=== PATIENT | male | born 1955 | race Caucasian/White ===

== ENCOUNTER 2018-02-20 09:49 | Emergency (ER) | payer MEDICARE, OTHER, SELFPAY ==
[2018-02-20 09:56] VITALS: BP 161/94; PULSE 95; RESP 16; TEMP 36.8; O2SAT 98; BMI 24.3
--- NOTE | 2018-02-20 10:21 | ED.NECK ---
HPI - Neck Pain/Injury General Chief Complaint: Neck Pain/Injury Stated Complaint: HIT HEAD, NECK PAIN Time Seen by Provider: 02/20/18 09:56 Source: patient Mode of arrival: ambulatory Limitations: no limitations History of Present Illness HPI Narrative: 62-year-old male with a history of cervical spinal fusion presents with 3 months of increasing neck pain after he hit his head while moving in [place]. He came in today because the pain has been increasing and he is concerned about potential fracture or displacement of his hardware. He notes occasional radicular symptoms down both arms when he turns his head and looks to the side. Before his neck surgery he could not look up due to pain. Sensing his head his symptoms have returned. He is taking ibuprofen 800 mg for pain. He is not interested in narcotic pain medications as he was on them for 7 years due to 7 total surgeries. Pain is worse when he looks up. Related Data Home Medications Medication Instructions Recorded Confirmed ibuprofen 800 mg PO DAILY 02/20/18 02/20/18 milk thistle 1 tab PO DAILY 02/20/18 02/20/18 Review of Systems Review of Systems All systems reviewed & are unremarkable except as noted in HPI and below Constitutional Denies chills, Denies fever(s), Denies lethargy and Denies weakness Eyes Denies change in vision, Denies eye discharge, Denies irritation and Denies loss of vision ENT Ears, Nose, Mouth, and Throat: Denies change in voice, Reports neck pain and Denies sore throat Cardiovascular Denies chest pain, Denies irregular heart rhythm, Denies lightheadedness, Denies palpitations, Denies dyspnea, Denies dyspnea on exertion and Denies orthopnea Respiratory Denies cough, Denies dyspnea, Denies dyspnea on exertion and Denies wheezing Gastrointestinal Gastrointestinal: Denies abdominal pain, Denies change in bowel habits, Denies diarrhea, Denies nausea and Denies vomiting Genitourinary Denies hematuria, Denies flank pain, Denies urinary incontinence and Denies urinary urgency Musculoskeletal Reports as per HPI, Reports neck pain and Reports tingling Integumentary/Breasts Denies pruritus, Denies erythema, Denies rash and Denies wounds Neurologic Denies confusion, Denies loss of vision, Reports tingling and Denies weakness Psychiatric Denies anxiety, Denies confusion, Denies depression, Denies homicidal ideation and Denies suicidal ideation Endocrine Denies palpitations Hematologic/Lymphatic Denies easy bruising Allergic/Immunologic Denies wheezing Exam Initial Vital Signs Initial Vital Signs: Vital Signs Temperature 98.3 F 02/20/18 09:56 Pulse Rate 95 H 02/20/18 09:56 Respiratory Rate 16 02/20/18 09:56 Blood Pressure 161/94 H 02/20/18 09:56 Pulse Oximetry 98 02/20/18 09:56 Const General: cooperative and well developed Nutritional Appearance: well nourished Orientation: alert, awake, oriented x3 and not confused HENIA Head: normocephalic and atraumatic Ears: external ears normal and TM's normal bilaterally Nose: external nose normal and No nasal discharge Face and sinus: sinuses nontender, face symmetric, no sinus tenderness and No dry mucous membranes Mouth: oral mucosae normal and moist mucous membranes Teeth and gingiva: dentition normal Throat: tonsils normal and uvula midline Eyes General: appearance normal, both eyes and all related structures Eyelids: eyelids normal Conjunctivae: conjunctivae normal Sclera: sclerae normal Pupils: PERRL EOM: EOM intact bilaterally Neck Neck: trachea midline, No lymphadenopathy, No midline deformity and No JVD Lymphatic: No lymphedema Other: Forward head posture. Tenderness over C5 and C6 midline. No paracervical tenderness. Positive Spurling's test bilaterally with pain radiating to shoulder and upper arm. Chest Chest: normal inspection of the chest Resp Effort & Inspection: normal respiratory effort, able to speak in complete sentences, no respiratory distress and no use of accessory muscles Auscultation: clear to auscultation bilaterally, no rales, no rhonchi and no wheezes Cardio Rate: regular rate Rhythm: regular rhythm Heart Sounds: no click, no gallops, no murmurs and no rubs Pulses: normal peripheral pulses GI Inspection: non-distended Palpation: soft, no hepatosplenomegaly, No guarding, No pulsatile mass and No tender Auscultation: normal bowel sounds Back/Spine/Pelvis Back: No CVA tenderness Cervical Spine: cervical ROM normal and No pain with cervical ROM Thoracic/Lumbar Spine: thoracic and lumbar spine normal to inspection Skin General: no rashes or lesions noted, No jaundice and No petechiae Neuro General: alert, oriented x3, gait normal and no focal motor deficits Speech: speech normal Extrem General: full ROM, no clubbing, cyanosis or edema, no pedal edema and no calf tenderness Psych Appearance: well kempt Mental Status: mental status grossly normal Attitude: cooperative Thought Content: normal and suicidality Judgment: judgment good Course Orders Ordered: ED Orders 02/20/18 10:48 CT cervical spine wo con Stat 02/20/18 12:00 Urine Microscopic Stat 02/20/18 12:06 MR cervical spine wo/w con Stat Vital Signs - 8 hr 02/20/18 09:56 02/20/18 12:00 02/20/18 13:45 Temperature 98.3 F Pulse Rate 95 H 72 80 Respiratory Rate 16 16 14 Blood Pressure 161/94 H Blood Pressure [Right Arm] 161/84 H 149/81 H Pulse Oximetry 98 99 100 02/20/18 14:27 Temperature Pulse Rate 75 Respiratory Rate 16 Blood Pressure Blood Pressure [Right Arm] 162/83 H Pulse Oximetry 99 MDM - Neck Pain/Injury Differential Diagnosis Likely disc disorder of cervical region, closed subluxation of cervical spine, fracture of cervical spine without lesion of spinal cord, cervical radiculopathy and strain of neck muscle Lab Data Lab Results 02/20/18 Range/Units 12:00 Urine RBC None seen (0-5/HPF) Urine WBC None seen (0-5/HPF) Urine Bacteria None seen (None) Ur Culture Indicated? Cult not indicated Micro UA Comment Microscopic normal Imaging Data ct cervical: Radiologist's impression: PROCEDURE: CT CERVICAL SPINE WO CON INDICATIONS: neck pain, trauma TECHNIQUE: Noncontrast 3 mm thick sections acquired from the skull base to the T4 level. Sagittal and coronal reformats were then constructed. For radiation dose reduction, the following was used: automated exposure control, adjustment of mA and/or kV according to patient size. COMPARISON: None. FINDINGS: Image quality: Diagnostic. Bones: The craniocervical and atlantoaxial joints are well-maintained. The odontoid is intact. However, there are cystic changes identified at the base of the odontoid, which are positioned to the left of midline. The vertebral body heights and prevertebral soft tissues are within normal limits throughout the cervical spine without evidence to suggest acute compression fracture. No other fractures are evident within the cervical spine. The bone mineralization is within normal limits. There is a lucent lesion identified involving the left C3 pedicle and facet (image 22, series 5). Postoperative changes are present related to an anterior cervical discectomy and fusion extending from C4-C7. Interbody spacers are present at each level. There is an anterior plate orthopedic plate secured in place by 2 screws at each level. The hardware appears to be intact. Moderate multilevel degenerative changes of the cervical spine are identified demonstrating multilevel posterior disc osteophyte complexes and facet arthrosis. Straightening of the normal cervical lordosis is present. There is no spondylolisthesis. Soft tissues: No prevertebral soft tissue swelling. The imaged lung apices are clear. Imaged portions of the mediastinum are unremarkable. Otherwise, the remainder of the imaged soft tissues of the neck are within normal limits. IMPRESSION: 1. No acute fracture of the cervical spine. 2. Postoperative changes related to extensive anterior lower cervical discectomy and fusion. The hardware appears to be intact. 3. Lucency involving the left C3 pedicle and facet may be related to a hemangioma. However, a bony neoplasm is difficult to exclude. Contrast enhanced MRI of the cervical spine is recommended for further evaluation. 4. Moderate degenerative changes of the cervical spine. Dictated by: Bertram Gimenez M.D. on 02/20/2018 at 10:12 Approved by: Bertram Gimenez M.D. on 02/20/2018 at 10:22 mri - cervical: Radiologist's impression: PROCEDURE: MR CERVICAL SPINE WO/W CON INDICATIONS: 62-year-old man with neck pain, abnormal CT TECHNIQUE: Noncontrast sagittal T1 spin echo and T2 fast spin echo, sagittal STIR, foraminal oblique sagittal T2 fast spin echo, axial gradient echo or T2 fast spin echo through the cervical spine. After the administration of contrast, axial and sagittal T1 spin echo with fat saturation through the cervical spine. COMPARISON: [facility], CT, CT CERVICAL SPINE WO CON, 02/20/2018, 10:44. FINDINGS: Image quality: Excellent. Alignment and curvature: There is normal bony alignment. Marrow: There are post surgical changes with spinal fusion at C4-C7, without suspicious enhancement. Hypointense T1 and mildly hyperintense T2 signal is noted in the left C3 pedicle and facet, and to a lesser degree the left C4 facet. There is severe C3 and C4 facet arthropathy on the left. On contrast enhanced images, there is lateral increased enhancement. The findings are suggestive of a benign process such as reactive changes related to arthritis. A differential diagnoses is an intraosseous hemangioma, which is given periarticular location and associated degenerative joint process. Spinal cord: Visualized spinal cord has normal size and signal. No cerebellar tonsillar herniation. No abnormal intramedullary enhancement. Paraspinous soft tissues: No paravertebral masses or suspicious enhancement. C2-3: Preserved disc height. Mild disc desiccation. There is broad posterior disc bulge and disc protrusion. Mild bilateral facet arthropathy. The central canal is mildly narrowed. No foraminal stenosis. C3-4: Preserved disc height. Mild disc desiccation. There is broad posterior disc bulge and disc protrusion. Severe left and moderate right facet arthropathy. The central canal is severely narrowed. Severe left and moderate right foraminal stenosis. C4-5: Surgically fused. No central canal stenosis. Mild bilateral foraminal stenosis. C5-6: Surgically fused. No central canal stenosis. Mild bilateral foraminal stenosis. C6-7: Surgically fused. No central canal stenosis. Mild bilateral foraminal stenosis. C7-T1: Normal appearance. IMPRESSION: 1. Hypointense T1 and mildly hyperintense T2 signal is noted in the left C3 pedicle and facet currently with CT finding of lucency in the same area. A similar but lesser degree of blunting is noted in the left C4 facet. There is severe left C3-C4 facet joint degeneration. There MRI findings are suggestive of reactive marrow edema secondary to severe left C3-C4 arthritis. Less likely diagnostic possibilities include intraosseous hemangioma, and metastatic disease. If the patient has personal history of cancer, a whole body bone scan would be helpful. 2. Multilevel degenerative and postsurgical changes in cervical spine. 3. Severe central canal stenosis at C3-C4, and mild central canal stenosis at C2-C3. 4. Severe left and moderate right foraminal stenosis at C3-C4. Dictated by: Tye Salinas M.D. on 02/20/2018 at 13:13 Approved by: Tye Salinas M.D. on 02/20/2018 at 13:56 MDM Narrative Medical decision making narrative: 62-year-old male with a history of degenerative disc disease of the cervical spine status post multiple spinal surgeries presents with neck pain that has been worsening over the past 3 months since hitting his head in [place] with radicular symptoms down both arms. He prefers not to take narcotics but rather wants to have imaging done to understand what is happening. He does not have a local primary care provider. CT suggested possible metastasis and recommended MRI. MRI shows severe degenerative disc disease and less likely metastasis. Patient has no known history of cancer at this time. Advised that he should see Dr. Benites given the severity of abnormalities seen on MRI. He is not having any red flags that need emergent attention today. Patient does not want pain medications. He understands and agrees with the plan for follow-up. Discharge Plan Departure Patient Disposition: Home, Self-Care Clinical Impression: Cervical radiculopathy, Acute neck pain, Degenerative joint disease of cervical spine Instructions: DI for Cervical Radiculopathy Activity Restrictions/Additional Instructions: Thank you for trusting us with your care today. I am sorry about your ongoing neck pain. Please discuss your situation with Dr. Benites in follow up. There does not appear to be anything that needs emergency treatment at this time. Return to the ER for new or worsening symptoms. Prescriptions: No Action ibuprofen 800 mg Tablet 800 mg PO DAILY RF: 0 milk thistle 1 tab PO DAILY RF: 0 Referrals: Colby Benites MD [Physician] -
--- NOTE | 2018-02-20 10:48 | DI.CT.S_ITS ---
PROCEDURE: CT CERVICAL SPINE WO CON INDICATIONS: neck pain, trauma TECHNIQUE: Noncontrast 3 mm thick sections acquired from the skull base to the T4 level. Sagittal and coronal reformats were then constructed. For radiation dose reduction, the following was used: automated exposure control, adjustment of mA and/or kV according to patient size. COMPARISON: None. FINDINGS: Image quality: Diagnostic. Bones: The craniocervical and atlantoaxial joints are well-maintained. The odontoid is intact. However, there are cystic changes identified at the base of the odontoid, which are positioned to the left of midline. The vertebral body heights and prevertebral soft tissues are within normal limits throughout the cervical spine without evidence to suggest acute compression fracture. No other fractures are evident within the cervical spine. The bone mineralization is within normal limits. There is a lucent lesion identified involving the left C3 pedicle and facet (image 22, series 5). Postoperative changes are present related to an anterior cervical discectomy and fusion extending from C4-C7. Interbody spacers are present at each level. There is an anterior plate orthopedic plate secured in place by 2 screws at each level. The hardware appears to be intact. Moderate multilevel degenerative changes of the cervical spine are identified demonstrating multilevel posterior disc osteophyte complexes and facet arthrosis. Straightening of the normal cervical lordosis is present. There is no spondylolisthesis. Soft tissues: No prevertebral soft tissue swelling. The imaged lung apices are clear. Imaged portions of the mediastinum are unremarkable. Otherwise, the remainder of the imaged soft tissues of the neck are within normal limits. IMPRESSION: 1. No acute fracture of the cervical spine. 2. Postoperative changes related to extensive anterior lower cervical discectomy and fusion. The hardware appears to be intact. 3. Lucency involving the left C3 pedicle and facet may be related to a hemangioma. However, a bony neoplasm is difficult to exclude. Contrast enhanced MRI of the cervical spine is recommended for further evaluation. 4. Moderate degenerative changes of the cervical spine. Dictated by: Bertram Gimenez M.D. on 02/20/2018 at 10:12 Approved by: Bertram Gimenez M.D. on 02/20/2018 at 10:22
[2018-02-20 12:00] VITALS: BP 161/84; PULSE 72; RESP 16; O2SAT 99
--- NOTE | 2018-02-20 12:06 | DI.MRI.S_ITS ---
PROCEDURE: MR CERVICAL SPINE WO/W CON INDICATIONS: 62-year-old man with neck pain, abnormal CT TECHNIQUE: Noncontrast sagittal T1 spin echo and T2 fast spin echo, sagittal STIR, foraminal oblique sagittal T2 fast spin echo, axial gradient echo or T2 fast spin echo through the cervical spine. After the administration of contrast, axial and sagittal T1 spin echo with fat saturation through the cervical spine. COMPARISON: [facility], CT, CT CERVICAL SPINE WO CON, 02/20/2018, 10:44. FINDINGS: Image quality: Excellent. Alignment and curvature: There is normal bony alignment. Marrow: There are post surgical changes with spinal fusion at C4-C7, without suspicious enhancement. Hypointense T1 and mildly hyperintense T2 signal is noted in the left C3 pedicle and facet, and to a lesser degree the left C4 facet. There is severe C3 and C4 facet arthropathy on the left. On contrast enhanced images, there is lateral increased enhancement. The findings are suggestive of a benign process such as reactive changes related to arthritis. A differential diagnoses is an intraosseous hemangioma, which is given periarticular location and associated degenerative joint process. Spinal cord: Visualized spinal cord has normal size and signal. No cerebellar tonsillar herniation. No abnormal intramedullary enhancement. Paraspinous soft tissues: No paravertebral masses or suspicious enhancement. C2-3: Preserved disc height. Mild disc desiccation. There is broad posterior disc bulge and disc protrusion. Mild bilateral facet arthropathy. The central canal is mildly narrowed. No foraminal stenosis. C3-4: Preserved disc height. Mild disc desiccation. There is broad posterior disc bulge and disc protrusion. Severe left and moderate right facet arthropathy. The central canal is severely narrowed. Severe left and moderate right foraminal stenosis. C4-5: Surgically fused. No central canal stenosis. Mild bilateral foraminal stenosis. C5-6: Surgically fused. No central canal stenosis. Mild bilateral foraminal stenosis. C6-7: Surgically fused. No central canal stenosis. Mild bilateral foraminal stenosis. C7-T1: Normal appearance. IMPRESSION: 1. Hypointense T1 and mildly hyperintense T2 signal is noted in the left C3 pedicle and facet currently with CT finding of lucency in the same area. A similar but lesser degree of blunting is noted in the left C4 facet. There is severe left C3-C4 facet joint degeneration. There MRI findings are suggestive of reactive marrow edema secondary to severe left C3-C4 arthritis. Less likely diagnostic possibilities include intraosseous hemangioma, and metastatic disease. If the patient has personal history of cancer, a whole body bone scan would be helpful. 2. Multilevel degenerative and postsurgical changes in cervical spine. 3. Severe central canal stenosis at C3-C4, and mild central canal stenosis at C2-C3. 4. Severe left and moderate right foraminal stenosis at C3-C4. Dictated by: Tye Salinas M.D. on 02/20/2018 at 13:13 Approved by: Tye Salinas M.D. on 02/20/2018 at 13:56
[2018-02-20 13:14] LABS: Bacteria Urine None Seen; RBC Urine None Seen (0-5/HPF); WBC Urine None Seen (0-5/HPF)
[2018-02-20 13:23] LABS: Culture Indicated Urine Cult Not Indicated; Urine Comments Microscopic Normal
[2018-02-20 13:45] VITALS: BP 149/81; PULSE 80; RESP 14; O2SAT 100
[2018-02-20 14:27] VITALS: BP 162/83; PULSE 75; RESP 16; O2SAT 99
== END 2018-02-20 14:43 | disposition home or self-care (01) ==
PROVIDERS: Emergency Provider Emergency Medicine
DX: M54.12 Radiculopathy, cervical region (principal); M54.2 Cervicalgia; M47.812 Spondylosis without myelopathy or radiculopathy, cervical region
CPT/HCPCS: 72125; 72156; 81003; 81015; 99283; 99284; A9579

== ENCOUNTER → 2018-03-24 13:20 | Outpatient (CLI) | payer MEDICARE, OTHER, SELFPAY | PROVIDERS: Visit Provider Orthopaedic Surgery | DX: M48.02 Spinal stenosis, cervical region (principal); Z01.818 Encounter for other preprocedural examination | CPT/HCPCS: 93005 ==

== ENCOUNTER 2018-04-08 12:50 | Day surgery (SDC) | payer MEDICARE, OTHER, SELFPAY ==
[2018-03-25 12:55] VITALS: BMI 24.7
[2018-04-08] VITALS (12 sets, daily range): BP systolic 121–179; BP diastolic 72–126; PULSE 62–783; RESP 10–18; TEMP 35.9–37.1; O2SAT 96–100; BMI 24.7; BMI 23.6
--- NOTE | 2018-04-08 | DI.RAD.S_ITS ---
PROCEDURE: XR CERVICAL SPINE 2V OR 3V INDICATIONS: C3-4 ACDF TECHNIQUE: 2 view(s) of the cervical spine were acquired. COMPARISON: None. IMPRESSION: Two images of the cervical spine obtained with a mobile image intensifier demonstrating anterior plate and screw fusion of C4-7. Dictated by: Louis Whitley M.D. on 04/08/2018 at 17:26 Approved by: Louis Whitley M.D. on 04/08/2018 at 17:27
[2018-04-08] MEDS: LACTATED RINGERS 1,000 ML 42 ML IV (13:39)
--- NOTE | 2018-04-08 14:05 | PM.PREOP ---
Pre-operative Note Interval Note Pre-op Check: Yes History & Physical Reviewed by Physician and Yes Exam Performed Changes: No
--- NOTE | 2018-04-08 14:42 | PM.OP.1 ---
Operative Date/Time/Diagnoses Date of procedure: 04/08/18 Time of procedure: 16:18 Pre-op diagnosis: Cervical stenosis with myelopathy Post-op diagnosis: same Procedure & Clinicians Procedure: C3-4 anterior cervical diskectomy and fusion Placement of cage Iliac crest bone graft Use of microscope Same procedure as scheduled: Yes Indications: [age] year old male with intractable pain from stenosis. They had failed conservative management and requested operative intervention. Risks and benefits of surgery were discussed and appropriate consents were obtained. Surgeon: Colby Benites Sulphate Tester: Sue Caicedo Anesthesia Type: General Operative Notes Findings: none Closure Type: primary Specimen(s): none sent Implants & Drains: Dionne LDR EROS-C Estimated Blood Loss (mL): 5 Blood products transfused: none Procedure in detail: Patient was brought to the operating room. He was hooked up to full neuro monitoring and intubated on the table. A time-out was performed. Preoperative antibiotics were given. The neck was prepped and draped in the standard sterile fashion. Using a skin fold, we made a 3 cm oblique incision on the left side. We used Bovie to go through the platysma and then did a standard anterolateral blunt dissection down to the precervical fascia. Fascia was nicked and elevated up. We found his previous plate and then went to the disc above. We confirmed with x-ray. We then subperiosteally elevated up the longus colli muscles. Self-retaining retractors were placed. We removed the top two screws to place our [place] pin into C4 as there was a titanium cage in the open central hole of the plate. A [place] pin was placed in C3 and they were distracted. We then brought in the microscope. A scalpel used to perform an annulotomy. We then used a combination of pituitaries and curettes and Kerrison to perform a complete anterior diskectomy at C3-4. We used the bur to decorticate the endplates. We took down the PLL and used Kerrison to remove any posterior disc material and osteophytes. At the end we could from the nerve hook cephalad caudally and out the foramen and everything was opened. A small stab incision was made over the left anterior iliac crest. A Jamshidi needle was advanced down the pedicle and 2 mL of bone marrow was aspirated. We then used the trials. We then packed a 14 x 17 x 7 mm EROS-C cage with Osteocell bone graft and the iliac crest harvest. The cage was placed under fluoroscopic guidance. We then placed our two locking plates. The self-retaining retractors and [place] pins were removed and final x-rays taken. The wound was irrigated. There was no bleeding. The carotid was beating nicely. The platysma was closed. The superficial was closed. The skin was closed. A sterile dressing was placed. They were then extubated and brought to recovery room with no complications. Complications: none Condition: stable Disposition: PACU Plan for aftercare: Overnight observation.
[2018-04-08] MEDS: CEFAZOLIN 2 GM/100 ML FROZ.PIGGY IV ×2 (14:45→22:12)
--- NOTE | 2018-04-08 14:46 | P.OP_ITS ---
Operative Date/Time/Diagnoses Date of procedure: 04/08/18 Time of procedure: 16:18 Pre-op diagnosis: Cervical stenosis with myelopathy Post-op diagnosis: same Procedure & Clinicians Procedure: C3-4 anterior cervical diskectomy and fusion Placement of cage Iliac crest bone graft Use of microscope Same procedure as scheduled: Yes Indications: [age] year old male with intractable pain from stenosis. They had failed conservative management and requested operative intervention. Risks and benefits of surgery were discussed and appropriate consents were obtained. Surgeon: Colby Benites Testing Analyst: Sue Caicedo Anesthesia Type: General Operative Notes Findings: none Closure Type: primary Specimen(s): none sent Implants & Drains: Dionne LDR EROS-C Estimated Blood Loss (mL): 5 Blood products transfused: none Procedure in detail: Patient was brought to the operating room. He was hooked up to full neuro monitoring and intubated on the table. A time-out was performed. Preoperative antibiotics were given. The neck was prepped and draped in the standard sterile fashion. Using a skin fold, we made a 3 cm oblique incision on the left side. We used Bovie to go through the platysma and then did a standard anterolateral blunt dissection down to the precervical fascia. Fascia was nicked and elevated up. We found his previous plate and then went to the disc above. We confirmed with x -ray. We then subperiosteally elevated up the longus colli muscles. Self- retaining retractors were placed. We removed the top two screws to place our Bridgeton pin into C4 as there was a titanium cage in the open central hole of the plate. A Bridgeton pin was placed in C3 and they were distracted. We then brought in the microscope. A scalpel used to perform an annulotomy. We then used a combination of pituitaries and curettes and Kerrison to perform a complete anterior diskectomy at C3-4. We used the bur to decorticate the endplates. We took down the PLL and used Kerrison to remove any posterior disc material and osteophytes. At the end we could from the nerve hook cephalad caudally and out the foramen and everything was opened. A small stab incision was made over the left anterior iliac crest. A Jamshidi needle was advanced down the pedicle and 2 mL of bone marrow was aspirated. We then used the trials. We then packed a 14 x 17 x 7 mm EROS-C cage with Osteocell bone graft and the iliac crest harvest. The cage was placed under fluoroscopic guidance. We then placed our two locking plates. The self- retaining retractors and Bridgeton pins were removed and final x-rays taken. The wound was irrigated. There was no bleeding. The carotid was beating nicely. The platysma was closed. The superficial was closed. The skin was closed. A sterile dressing was placed. They were then extubated and brought to recovery room with no complications. Complications: none Condition: stable Disposition: PACU Plan for aftercare: Overnight observation.
--- NOTE | 2018-04-08 15:19 | SUR.OPER ---
Supine, head on gel donut. Arms padded with gel pads, tucked at sides, towel roll under shoulders. Safety belt at thigh. Legs uncrossed.
[2018-04-08] MEDS: THROMBIN (BOVINE) 5,000 UNIT VIAL 5000 UNIT TOP (15:27)
--- NOTE | 2018-04-08 16:44 | SUR.PHASEI ---
Dr Boggs notified of htn
[2018-04-08] MEDS: MORPHINE 4 MG/ML INJ 6 MG IV (16:52)
[2018-04-08] MEDS: LACTATED RINGERS 1,000 ML 125 ML IV (18:04)
[2018-04-08] MEDS: DEXAMETHASONE 4 MG/ML VIAL IV ×2 (18:20→23:51)
[2018-04-08] MEDS: CELECOXIB 200 MG CAPSULE 400 MG PO (18:20)
--- NOTE | 2018-04-08 19:07 | PC.NURSE ---
POST-OP Received pt at approximately 1715 via stretcher, accompanied by MOBILE DEVICE ENGINEER, able to transfer to bed with 1P mod assist as gait was slightly unsteady (pt with history of L knee issues). soft cervical collar in place. anterior neck dressing CDI. L hip graft site dressing CDI. pt reports numbness to bilateral upper arms but states improvement compared to before surgery. c/o pain to neck area rated 2/10. pt declined to have any oral intake at this time, denies N/v, just wants to rest for now. able to tolerate PO medications. due to void at 1999. oriented to room and call light.
[2018-04-09] MEDS: LACTATED RINGERS 1,000 ML 125 ML IV (02:03)
[2018-04-09 05:10] VITALS: BP 123/91; PULSE 79; RESP 18; TEMP 36.3; O2SAT 98
[2018-04-09] MEDS: CEFAZOLIN 2 GM/100 ML FROZ.PIGGY IV (06:08)
[2018-04-09] MEDS: DEXAMETHASONE 4 MG/ML VIAL IV (06:08)
[2018-04-09 07:10] VITALS: BP 134/81; PULSE 59; RESP 19; TEMP 36.4; O2SAT 98
--- NOTE | 2018-04-09 08:03 | PM.PNPO.1 ---
Subjective Date Patient Seen: 04/09/18 Time Patient Seen: 08:03 Interval history: He feels great. He has some neck pain but symptoms are tremendously better. He now can move his neck without having any neurologic signs Exam Vital Signs (past 8 hours): - 04/09/18 05:10 Temperature 97.4 F L Pulse Rate 79 Respiratory Rate 18 Blood Pressure 123/91 H Pulse Oximetry 98 Oxygen Delivery Method Room Air Const Orientation: alert and oriented x3 Back/Spine/Pelvis Other: Dressing CDI. 5/5 motor both lower extremities Able to extend his neck without any problem. Assessment & Plan Post-op Postoperative Procedures Operation Date: 04/08/18 14:45 Actual Procedures Side Surgeon p C4-5 ACDF w/ Bone Graft and Cage Colby Benites MD he is doing great. Discharge home after therapy this morning. Time Spent With Patient less than 15 minutes Quality VTE Deep Vein Thrombosis/Pulmonary Embolism Present on Admission: No
[2018-04-09] MEDS: CELECOXIB 200 MG CAPSULE PO (08:21)
[2018-04-09] MEDS: DOCUSATE 100 MG CAPSULE PO (08:21)
--- NOTE | 2018-04-09 08:49 | CM.DANOTE ---
Discharge Planning/Care Management DCP: case receied, EMR reviewed and met with pt. Introduces self and role. Pt is a 62 year old male who admitted yesterday for a planned cervical spinal surgery. Surgeon: Dr. Benites Payer: Medicare and [employer]. Pt says Dr. Benites has ok'd him for home today once he works with PT/OT. He says he feels ready for this and that this is his 8th orthopedic surgery. P: follow prn for any needs that may arise post OT/PT evals. Anticipate home today/08/04 supportive care from friends. CM Discharge Assessment Start: 04/09/18 08:47 Freq: Status: Active Protocol: Document 04/09/18 08:47 ITV (Rec: 04/09/18 08:49 ITV [id number]) Discharge Planning Assessment History Provided By Patient Medical Record Has Patient been admitted in last 30 No days? Is this patient on Medicare? Yes Prior Living Arrangements RV Type of transporation used prior to Drives own vehicle admit Independent with ADL's Yes Is patient alert and oriented? Yes Referrals Initiated None needed Discharge Plan Home Transportation Arrangement friends Additional Comment pt will have 08/04 supportive from his [employer]. His motor home is in [place]. Lives primarily in [place]
--- NOTE | 2018-04-09 09:45 | OT.IP.EVAL ---
Current Diagnoses Spinal stenosis, cervical region (04/08/18) Arthrodesis status (04/08/18) Surgery Performed Operation Date: 04/08/18 14:45 Actual Procedures p C4-5 ACDF w/ Bone Graft and Cage - Colby Benites MD Past Medical History (Last Updated 03/28/18 @ 13:37 by Monica Valero, RN) Cervical stenosis of spine (Acute) Meningitis spinal (Acute) Surgical History (Last Updated 03/28/18 @ 13:35 by Monica Valero RN) History of arthroscopy of both knees (Acute) History of fusion of cervical spine (Acute) History of lumbar surgery (Acute) Hx of shoulder surgery (Acute) S/P carpal tunnel release (Acute) Occupational Therapy Inpatient Evaluation/Re-Eval M1 PT/OT-IP Prior Functional Status Start: 04/09/18 11:39 Freq: NEEDED Status: Active Protocol: Document 04/09/18 11:40 PJM (Rec: 04/09/18 11:53 PJM [id number]) Medical Review Prior Functional Status Medical History Reviewed Yes Communication WNL Mobility and Gait Pt states he ambulates without a device. He has chronic B knee pain and is scheduled to have L TKA later this year. He denies falls at home. Activities of Daily Living and IADL's Independent with all self care and IADLS Prior Functional Level (Other details) Pt takes his motor home to [place] in the winter months. Social History Household Members none Living Arrangements RV Number of Floors (Floors) One Floor Number of Stairs To Enter/Railing? 4 total to enter with handholds Home Environment High Toilet Walk in Shower Home Equipment Four Wheel Walker Employment Status Retired Additional Social History Comment Pt has small dog. M2 OT-IP Current Condition Start: 04/09/18 11:39 Freq: Status: Active Protocol: Document 04/09/18 11:40 PJM (Rec: 04/09/18 11:53 PJM [email or web address]) Occupational Therapy Current Condition Current Condition Evaluation Date 04/09/18 Treatment Diagnosis assess ability to d/c home alone after C3-4 ACDF Diagnosis Onset Date 04/08/18 Post Operative Precautions Cervical Spine Precautions Soft Collar at all Times No Heavy Lifting Log Roll Other Precautions Pt will wear soft collar until first post op appt. M3 OT- IP Subjective and Pain Start: 04/09/18 11:39 Freq: Status: Active Protocol: Document 04/09/18 11:40 PJM (Rec: 04/09/18 11:53 PJ [id number]) OT- Subjective Occupational Therapy Visit Type Type Initial Evaluation Visit Start Time 09:15 Visit Stop Time 09:43 Total Visit Minutes 28 Occupational Therapy Visit Comments Patient Comments My friend from [place] is picking me up. I am anxious to see my dog. Patient/Caregiver Goals to be independent at home, have total knee surgery this winter. OT Pain Assessment Pain When Pain Assessed At Rest Pain Present Pain Present Pain Reported Location Neck Intensity 2 Scale Used Numeric (1 - 10) Description Aching M4 OT- IP ADL's Start: 04/09/18 11:39 Freq: Status: Active Protocol: Document 04/09/18 11:40 PJM (Rec: 04/09/18 11:53 PJ [email or web address]) OT [id number] General Evaluation Self-Feeding Ability Independent OT ADL-Grooming General Evaluation Grooming Ability Independent Comments OT Grooming Comments standing at sink; provided education re: body mechanics OT ADL-Oral Care General Eval Oral Care Ability Independent Comments Oral Care Comments standing at sink; provided education re: body mechanics OT ADL-Dressing General Eval Upper Body Dressing Ability Independent Lower Body Dressing Ability Independent Comments OT Dressing Comments no adaptive equipt needed OT ADL-Toileting General Evaluation Toileting Ability Independent OT ADL-Bathing Devices Bathing Equipment Long Handled Sponge or Gaming Table Operator Held Shower Sprayer Comments OT Bathing Comments pt declines to shower, provided education re: keeping incision site dry; provided long bath sponge at pt request M5 OT- IP IADL's Start: 04/09/18 11:39 Freq: Status: Active Protocol: Document 04/09/18 11:40 PJM (Rec: 04/09/18 11:53 PJ [email or web address]) OT-Instrumental Activities of Daily Living Deficits IADL Deficits Identified Deficits Home Safety Awareness Awareness of Need for Assistance at Home Good Awareness Ability to Problem Solve Emergency Able to Problem Solve Situations Medication Management Medication Management No Deficits Identified Money Management Money Management No Deficits Identified Meal Preparation Meal Preparation No Deficits Identified Meal Preparation Comments Pt lives on his friend's property and they frequently share meals. Medical Legal Investigator Medical Legal Investigator Caregiver Provides Assist Medical Legal Investigator Comments Friend or son can assist PRN until pt able. Driving Driving Caregiver Provides Assist Driving Comments Friend or son can assist PRN until pt able. M6 OT- IP Functional Cognition Start: 04/09/18 11:39 Freq: Status: Active Protocol: Document 04/09/18 11:40 PJM (Rec: 04/09/18 11:53 PJM [email or web address]) Cognitive Factors Limiting Selfcare Function Cognitive Ability Level of Alertness Alert Patient Orientation Name Age Birthday Month Date Year Day of Week Place Situation Attention Span Ability Capable of Focused Attention Capable of Sustained Attention Ability to Follow Commands Able to Follow One Step Commands Memory Description No Deficits Noted Safety Awareness No Deficits Noted Problem Solving Ability No deficits Noted Cognitive Comments Cognitive Assessment Comments Pt recalls precautions from previous neck surgery 4 yrs ago. OT- Vision and Hearing OT- Hearing Assessment OT- Hearing Assessment WFL OT- Vision Assessment Visual Acuity WFL M7 OT- IP Mobility and Balance Start: 04/09/18 11:39 Freq: Status: Active Protocol: Document 04/09/18 11:40 PJM (Rec: 04/09/18 11:53 PJ [email or web address]) OT-Transfer Assessment Sit to and From Stand Sit to and from Stand Standby Assistance Transfers Transfer Ability Independent Technique Transfer Destination Chair Toilet Devices Transfer Assistive Devices None Comments Mobility Comments Pt up ad daisha in room without a device; slightly unsteady and tends to furniture walk. P .T. eval pending. OT- Gait Assessment Gait Gait Assistance Required: Standby Assistance Assistive Devices Assistive Device None Comments Gait Ability Comments Pt up ad daisha in room without a device; slightly unsteady and tends to furniture walk. P .T. eval pending. OT- Balance Assessment Sitting Balance and Reactions Static Sitting Balance Ability Normal Dynamic Sitting Balance Ability Normal Standing Balance and Reactions Static Standing Balance Ability Good M8 OT- IP Objective Assessments Start: 04/09/18 11:39 Freq: Status: Active Protocol: Document 04/09/18 11:40 PJM (Rec: 04/09/18 11:53 PJM [email or web address]) OT Gross Range of Motion Upper Extremity Range of Motion Assessment Within Functional Limits ROM Impairments did not assess shoulder scaption about 90 degrees due to recent C spine surgery OT Strength Upper Extremity Strength Assessment Within Functional Limits OT- Coordination Assessment Comments Coordination Comments BUE WFL for self care and buttoning shirt OT-Muscle Tone Assessment Muscle Tone WNL Yes OT Sensation Assessment Comments Summary Comments Pt reports decreased Lt touch over B deltoids, but reports sensation has improved since surgery as he was having numbness in entire arms pre op . M9 OT- IP Assessment and Plan Start: 04/09/18 11:39 Freq: Status: Active Protocol: Document 04/09/18 11:40 PJM (Rec: 04/09/18 11:53 PJM [email or web address]) OT Summary Assessment and Plan Potential Rehabilitation Potential Good Analytic Complexity at Evaluation Low Summary Assessment Summary Low complexity OT assessment and all education re: cervical spine precautions completed in one visit. Pt familiar with adapted ADLS from previous c- spine fusion 4 yrs ago. Pt plans to d/c home today with intermittent assist from the friends whose property he lives on. His son also lives nearby. No further OT services needed. Treatment Plan Other Treatment Recommendations and Next D/C OT Treatment Focus Discharge Recommendations OT Discharge Recommendations Home with Assistance Home Equipment Needs long bath sponge provided
--- NOTE | 2018-04-09 09:49 | PT.IIE ---
Current Diagnoses Spinal stenosis, cervical region (04/08/18) Arthrodesis status (04/08/18) Surgery Performed Operation Date: 04/08/18 14:45 Actual Procedures p C4-5 ACDF w/ Bone Graft and Cage - Colby Benites MD Surgical History (Last Updated 03/28/18 @ 13:35 by Monica Valero, RN) History of arthroscopy of both knees (Acute) History of fusion of cervical spine (Acute) History of lumbar surgery (Acute) Hx of shoulder surgery (Acute) S/P carpal tunnel release (Acute) Medical History (Last Updated 03/28/18 @ 13:37 by Monica Valero RN) Cervical stenosis of spine (Acute) Meningitis spinal (Acute) Physical Therapy Inpatient Evaluation/Re-Eval M1 PT/OT-IP Prior Functional Status Start: 04/09/18 11:39 Freq: NEEDED Status: Active Protocol: Document 04/09/18 11:40 PJM (Rec: 04/09/18 11:53 PJM [email or web address]) Medical Review Prior Functional Status Medical History Reviewed Yes Communication WNL Mobility and Gait Pt states he ambulates without a device. He has chronic B knee pain and is scheduled to have L TKA later this year. He denies falls at home. Activities of Daily Living and IADL's Independent with all self care and IADLS Prior Functional Level (Other details) Pt takes his motor home to [place] in the winter months. Social History Household Members none Living Arrangements RV Number of Floors (Floors) One Floor Number of Stairs To Enter/Railing? 4 total to enter with handholds Home Environment High Toilet Walk in Shower Home Equipment Four Wheel Walker Employment Status Retired Additional Social History Comment Pt has small dog. M1 PT/OT-IP Prior Functional Status Start: 04/09/18 12:08 Freq: NEEDED Status: Active Protocol: Document 04/09/18 09:49 AB (Rec: 04/09/18 12:26 AB [id number]) Medical Review Prior Functional Status Medical History Reviewed Yes Communication WNL Mobility and Gait Pt states he ambulates without a device. He has chronic B knee pain and is scheduled to have L TKA later this year. He denies falls at home. Activities of Daily Living and IADL's Independent with all self care and IADLS Prior Functional Level (Other details) Pt takes his motor home to [place] in the winter months. Social History Household Members none Living Arrangements RV Number of Floors (Floors) One Floor Number of Stairs To Enter/Railing? 4 total to enter with handholds Home Environment High Toilet Walk in Shower Home Equipment Four Wheel Walker Hand Held Shower Grab Bars In Shower Employment Status Retired Additional Social History Comment Pt has small dog. M2 PT-IP Current Condition Start: 04/09/18 12:08 Freq: NEEDED Status: Active Protocol: Document 04/09/18 09:49 AB (Rec: 04/09/18 12:26 AB [id number]) Physical Therapy Current Condition Current Condition Evaluation Date 04/09/18 Treatment Diagnosis s/p cervical fusion Precautions Cervical Spine Precautions Soft Collar for Comfort No Heavy Lifting Log Roll Other Precautions Pt will wear soft collar until first post op appt. M3 PT-IP Subjective Start: 04/09/18 12:08 Freq: NEEDED Status: Active Protocol: Document 04/09/18 09:49 AB (Rec: 04/09/18 12:26 AB [id number]) Subjective Physical Therapy Visit Type Type Initial Evaluation Visit Start Time 09:49 Visit Stop Time 10:05 Total Visit Minutes 16 Number of FIELD COORDINATOR Visits 0 Physical Therapy Visit Comments Patient Comments want to go home by 11 am Therapy Pain Assessment Pain When Pain Assessed At Rest Pain Present Pain Present Pain Reported Location Neck Intensity 3 M4 PT-IP Mobility and Gait Start: 04/09/18 12:08 Freq: NEEDED Status: Active Protocol: Document 04/09/18 09:49 AB (Rec: 04/09/18 12:26 AB [id number]) PT-Bed Mobility Assessment Supine to Sit Supine to Sit Standby Assistance Sit to Supine Sit to Supine Standby Assistance PT-Transfer Assessment Sit to and From Stand Sit to and from Stand Standby Assistance Equipment Transfer Assistive Device None Gait Belt Transfers Transfer Destination Bed Transfer Technique Stand Step Pivot Transfer Ability Level of Assist Standby Assistance Gait Assessment Gait Gait Assistance Required: Standby Assistance Contact Guard Assist Distance (Feet) (feet) 200 Able to Maintain Weight Bearing Status Yes During Gait Assistive Devices Assistive Device None Gait Belt Orthotic/Prosthetic Devices or Brace: No Gait Deviations General Gait Pattern Antalgic Factors Limiting Gait Function Factors Limiting Gait Function Decreased Activity Tolerance Decreased Strength Limited Range of Motion Pain Poor Balance Poor Safety Awareness Comments Gait Comments requires CGA with initial ambulation with (+) tremors of trunk/UE. pt stated that it is the meds. pt became more steady towards end of ambulation. Stair Climbing Assessment Evaluation Level of Assist On Stairs Standby Assistance Devices Stair Climbing Assistive Devices Left Railing Technique/Endurance Stair Climbing Direction Ascend and Descend Stair Climbing Technique Step Over Step Number of Steps Climbed 3 Query Text: Stair Climbing Set # Repetitions (reps) 2 PT-Balance Assessment Sitting Balance and Reactions Static Sitting Balance Ability Good Dynamic Sitting Balance Ability Good Standing Balance and Reactions Static Standing Balance Ability Good Dynamic Standing Balance Ability Good Device Used none M5 PT-IP Objective Assessments Start: 04/09/18 12:08 Freq: NEEDED Status: Active Protocol: Document 04/09/18 09:49 AB (Rec: 04/09/18 12:26 AB [id number]) Orientation Orientation/Cognition Level of Alertness Alert Orientation Name Age Birthday Month Date Year Day of Week Place Situation Safety Awareness Understands Safety Issues Gross Range of Motion Lower Extremity ROM Assessment Within Functional Limits Strength Lower Extremity Strength Assessment Within Functional Limits M6 PT-IP Treatment Start: 04/09/18 12:08 Freq: NEEDED Status: Active Protocol: Document 04/09/18 09:49 AB (Rec: 04/09/18 12:26 AB [id number]) Physical Therapy Treatment Education Education Provided Precautions Weight Bearing Status Post-Op Packet Safety M7 PT-IP Assessment and Plan Start: 04/09/18 12:08 Freq: NEEDED Status: Active Protocol: Document 04/09/18 09:49 AB (Rec: 04/09/18 12:26 AB [id number]) PT Summary Assessment and Plan Potential Rehabilitation Potential Good Status of Condition at Evaluation Stable Summary Impairments Pain ROM Strength Balance Coordination Bed Mobility Transfers Gait Activity Tolerance Assessment Summary pt requiring SBA to CGA with ambulation. pt plans to go home today and stated that his friends that lives just a few feet away can assist him. pt may go home when medically stable. Goals Bed Mobility Goal Independent Transfer Goal Independent Gait Goal Independent Gait Distance 250 Other Goals up/down 4 steps 1 rail SBA Days to Meet Goals 2 Frequency of Treatment Frequency Of Treatment Twice a Day Treatment Plan Physical Therapy Treatment Plan Bed Mobility Training Transfer Training Gait Training Therapeutic Exercise Balance Retraining Post Op Education Discharge Planning Hot or Cold Pack Neuromuscular Re-ed Coordination Retraining Manual Therapy Recommendations To Nursing Amount of Assist Needed Standby Assistance Discharge Recommendations PT Discharge Recommendations Home with Assistance
--- NOTE | 2018-04-09 11:05 | PC.NURSE ---
AM Shift patient dressed in personal clothes, packed up, and awaiting DC. IV removed and tolerated well. Call and message left at Dr. Benites's office (cell voicemail box was full). Dr. Benites is now in clinic so office staff called back to let me know that Katie Britt would be available to assist with completing pt's DC when she is out of surgery; approximately 1200. They stated they will call and leave her a message and I plan on calling PACU to follow up. Patient denying pain, reports discomfort, swallowing appropriately and without pain. Stable with ambulation. Friend pension agent for pickup at discharge.
== END 2018-04-09 12:20 | disposition home or self-care (01) ==
LOC: OR 17:29 → AC 17:30
PROVIDERS: Visit Provider Orthopaedic Surgery
PROC: (CPT 22551; principal; 2018-04-08 14:45)
DX: M48.02 Spinal stenosis, cervical region (principal); G95.9 Disease of spinal cord, unspecified; Z98.1 Arthrodesis status; Z87.891 Personal history of nicotine dependence
CPT/HCPCS: 22551; 20939; 22853; 72040; 76001; 97161; 97165; C1776; J0330; J0690; J1100; J1170; J2270; J2405; J2704; J3010